=== PATIENT | female | born 1990 | race Caucasian/White ===

== ENCOUNTER 2018-07-04 15:46 | Emergency (ER) | payer OTHER ==
[~2018-07-04] VITALS: Ht 165.1 cm; Wt 71.0 kg
[2018-07-04 16:21] LABS: BASOPHILS # (AUTO) 0.02 x10^3/uL (0-0.1); BASOPHILS % (AUTO) 0 % (0-1); EOSINOPHILS # (AUTO) 0.05 x10^3/uL (0-0.4); EOSINOPHILS % (AUTO) 1 % (1-7); LYMPHOCYTES # (AUTO) 2.16 x10^3/uL (1-3.4); LYMPHOCYTES % (AUTO) 27 % (22-44); MD NO; MEAN CORPUSCULAR HEMOGLOBIN 30.4 pg (27.0-34.8); MEAN CORPUSCULAR HGB CONC 34.6 g/dL (32.4-35.8); MEAN CORPUSCULAR VOLUME 87.9 fL (80-100); MEAN PLATELET VOLUME 8.7 fL (7.4-10.4); MONOCYTES # (AUTO) 0.93 x10^3/uL (0.2-0.8); MONOCYTES % (AUTO) 12 % (2-9); NEUTROPHILS # (AUTO) 4.92 x10^3/uL (1.8-6.8); NEUTROPHILS % (AUTO) 61 % (42-75); PLATELET COUNT 265 x10^3/uL (130-400); RED BLOOD COUNT 4.87 x10^6/uL (3.82-5.3)
[2018-07-04 16:31] LABS: ALANINE AMINOTRANSFERASE 22 U/L (12-78); ALBUMIN 3.7 g/dL (3.4-5.0); ANION GAP 8 mmol/L (5-15); CALCIUM 9.3 mg/dL (8.5-10.1); CHLORIDE 107 mmol/L (98-107); CREATININE 0.78 mg/dL (0.55-1.02)
[2018-07-04 16:36] LABS: ALKALINE PHOSPHATASE 74 U/L (45-117); BILIRUBIN,TOTAL 0.4 mg/dL (0.2-1.0); TOTAL PROTEIN 7.5 g/dL (6.4-8.2); TROPONIN I < 0.015 ng/mL (0.000-0.045)
[2018-07-04 16:38] LABS: MICROSCOPIC AUTO
[2018-07-04 16:41] LABS: CULTURE INDICATED? YES
[2018-07-04] MEDS ORDERED: SODIUM CHLORIDE 0.9% 1,000ML IVBOLUS ONE ×2 (18:00)
[2018-07-04 18:45] VITALS: BP 110/76
== END 2018-07-04 19:24 | disposition home or self-care (01) ==
LOC: ED 17:37
DX: O23.11 Infections of bladder in pregnancy, first trimester (principal); Z3A.14 14 weeks gestation of pregnancy
CPT/HCPCS: 36415; 76801; 80053; 81001; 84484; 84702; 85025; 86901; 87077; 87086; 93005; 96360; 99285; J7030; 87186

== ENCOUNTER 2018-07-08 12:21 | Emergency (ER) | payer OTHER ==
[~2018-07-08] VITALS: Ht 165.1 cm; Wt 70.2 kg
[2018-07-08 13:37] LABS: BASOPHILS # (AUTO) 0.01 x10^3/uL (0-0.1); BASOPHILS % (AUTO) 0 % (0-1); EOSINOPHILS # (AUTO) 0.04 x10^3/uL (0-0.4); EOSINOPHILS % (AUTO) 1 % (1-7); LYMPHOCYTES # (AUTO) 1.36 x10^3/uL (1-3.4); LYMPHOCYTES % (AUTO) 27 % (22-44); MD NO; MEAN CORPUSCULAR HEMOGLOBIN 30.5 pg (27.0-34.8); MEAN CORPUSCULAR HGB CONC 34.5 g/dL (32.4-35.8); MEAN CORPUSCULAR VOLUME 88.4 fL (80-100); MEAN PLATELET VOLUME 8.7 fL (7.4-10.4); MONOCYTES # (AUTO) 0.58 x10^3/uL (0.2-0.8); MONOCYTES % (AUTO) 12 % (2-9); NEUTROPHILS # (AUTO) 3.01 x10^3/uL (1.8-6.8); NEUTROPHILS % (AUTO) 60 % (42-75); PLATELET COUNT 228 x10^3/uL (130-400); RED BLOOD COUNT 4.61 x10^6/uL (3.82-5.3); RED CELL DISTRIBUTION WIDTH 13.4 % (9.6-15.2)
[2018-07-08 14:42] VITALS: BP 132/67
[2018-07-08 14:43] LABS: MICROSCOPIC INDICATED
[2018-07-08 14:54] LABS: CULTURE INDICATED? YES
== END 2018-07-08 15:46 | disposition home or self-care (01) ==
LOC: ED 15:00
DX: O23.11 Infections of bladder in pregnancy, first trimester (principal); Z3A.01 Less than 8 weeks gestation of pregnancy
CPT/HCPCS: 36415; 76801; 81001; 84702; 85025; 87077; 87086; 87186; 99285

== ENCOUNTER 2019-04-27 14:54 | Emergency (ER) | payer OTHER ==
[~2019-04-27] VITALS: Ht 165.1 cm; Wt 84.4 kg
[2019-04-27 14:57] VITALS: BP 121/84
--- NOTE | 2019-04-27 15:25 | NUR ---
ua ordered; rn to bedside; educated on clean catch methods; patient repeated instructions and verbalized understanding.
--- NOTE | 2019-04-27 15:35 | NUR ---
u/s at bedside; labs complete
[2019-04-27 15:42] LABS: BASOPHILS # (AUTO) 0.06 x10^3/uL (0-0.1); BASOPHILS % (AUTO) 1 % (0-1); EOSINOPHILS # (AUTO) 0.07 x10^3/uL (0-0.4); EOSINOPHILS % (AUTO) 1 % (1-7); LYMPHOCYTES # (AUTO) 1.65 x10^3/uL (1-3.4); LYMPHOCYTES % (AUTO) 20 % (22-44); MD NO; MEAN CORPUSCULAR HEMOGLOBIN 29.2 pg (27.0-34.8); MEAN CORPUSCULAR HGB CONC 33.2 g/dL (32.4-35.8); MEAN CORPUSCULAR VOLUME 87.9 fL (80-100); MEAN PLATELET VOLUME 8.9 fL (7.4-10.4); MONOCYTES # (AUTO) 0.79 x10^3/uL (0.2-0.8); MONOCYTES % (AUTO) 10 % (2-9); NEUTROPHILS # (AUTO) 5.61 x10^3/uL (1.8-6.8); NEUTROPHILS % (AUTO) 69 % (42-75); PLATELET COUNT 204 x10^3/uL (130-400); RED BLOOD COUNT 4.09 x10^6/uL (3.82-5.3); RED CELL DISTRIBUTION WIDTH 14.5 % (9.6-15.2)
[2019-04-27 15:50] LABS: ALANINE AMINOTRANSFERASE 16 U/L (12-78); ALBUMIN 2.8 g/dL (3.4-5.0); ANION GAP 7 mmol/L (5-15); CALCIUM 9.1 mg/dL (8.5-10.1); CHLORIDE 112 mmol/L (98-107); CREATININE 0.53 mg/dL (0.55-1.02)
[2019-04-27 15:52] LABS: ALKALINE PHOSPHATASE 73 U/L (45-117); BILIRUBIN,TOTAL 0.2 mg/dL (0.2-1.0); TOTAL PROTEIN 6.5 g/dL (6.4-8.2)
--- NOTE | 2019-04-27 16:26 | NUR ---
u/a sent; provider updated
[2019-04-27 16:40] LABS: MICROSCOPIC AUTO
[2019-04-27 17:04] LABS: CULTURE INDICATED? YES
[2019-05-03] MEDS ORDERED: PREN1TAB60 PO (06:24)
[2019-06-07] MEDS ORDERED: PREN1TAB10 PO (16:54)
== END 2019-04-27 17:45 | disposition home or self-care (01) ==
LOC: ED 17:37
DX: O23.12 Infections of bladder in pregnancy, second trimester (principal); Z87.891 Personal history of nicotine dependence; Z3A.20 20 weeks gestation of pregnancy
CPT/HCPCS: 36415; 80053; 81001; 84550; 85025; 87077; 87086; 87186; 93970; 99284

== ENCOUNTER 2019-05-03 05:32 | Outpatient (CLI) | payer OTHER ==
[~2019-05-03] VITALS: Ht 165.1 cm; Wt 80.0 kg
[2019-05-03 05:55] VITALS: BP 111/65
== END 2019-05-03 06:40 | disposition home or self-care (01) ==
LOC: LDOP 05:32
PROVIDERS: ATTEND Obstetrics & Gynecology
DX: O46.92 Antepartum hemorrhage, unspecified, second trimester (principal); O26.892 Other specified pregnancy related conditions, second trimester; R10.9 Unspecified abdominal pain; Z3A.20 20 weeks gestation of pregnancy
CPT/HCPCS: 81003; 87086; 99211; G0463

== ENCOUNTER 2019-07-17 20:29 | Outpatient (CLI) | payer OTHER ==
[~2019-07-17 20:29] MED LIST: PREN1TAB10 PO; PREN1TAB60 PO
[2019-07-17 20:58] LABS: MICROSCOPIC AUTO
[2019-07-17 21:30] VITALS: BP 116/70
== END 2019-07-17 22:30 | disposition home or self-care (01) ==
LOC: LDOP 20:29
PROVIDERS: ATTEND Obstetrics & Gynecology
DX: O36.8130 Decreased fetal movements, third trimester, not applicable or unspecified (principal); O26.893 Other specified pregnancy related conditions, third trimester; R10.9 Unspecified abdominal pain; O16.3 Unspecified maternal hypertension, third trimester; Z3A.31 31 weeks gestation of pregnancy
CPT/HCPCS: 59025; 81001; 87077; 87086; 87186; 99211; G0463

== ENCOUNTER 2019-07-27 12:06 | Outpatient (CLI) | payer OTHER ==
[2019-07-27 13:08] LABS: FERNING TEST FERNING NOT PRESENT (NEGATIVE)
== END 2019-07-27 14:00 | disposition home or self-care (01) ==
LOC: LDOP 12:06
PROVIDERS: ATTEND Obstetrics & Gynecology
DX: O42.90 Premature rupture of membranes, unspecified as to length of time between rupture and onset of labor, unspecified weeks of gestation (principal); Z3A.32 32 weeks gestation of pregnancy
CPT/HCPCS: 59025; 76815; 84112; 89060; 99211; G0463; Q0114

== ENCOUNTER 2019-08-15 17:51 | Outpatient (CLI) | payer OTHER ==
[~2019-08-15] VITALS: Ht 165.1 cm; Wt 90.9 kg
[2019-08-15 18:19] VITALS: BP 112/65
[2019-08-15 18:38] LABS: MICROSCOPIC INDICATED
[2019-08-15] MEDS ORDERED: MORPHINE SULFATE 4 MG/ML, 1ML ONE (19:22)
[2019-08-15] MEDS ORDERED: MORPHINE SULFATE 4 MG/ML, 1ML IVPush ONE (19:30)
[2019-08-15] MEDS ORDERED: CEFTRIAXONE PMX 2GM/50ML 50 ML IV ONE (20:00)
[2019-08-27] MEDS ORDERED: IBUP-1222 PO (11:15)
[2019-08-27] MEDS ORDERED: CEFU250T66 PO (11:20)
[2019-08-27] MEDS ORDERED: OXYC-302 PO (11:22)
== END 2019-08-15 21:10 | disposition home or self-care (01) ==
LOC: LDOP 17:51 → UNDOADMOB 19:44 → LDIP 19:44 → LDOP 21:10 → UNDODISOB 21:10
PROVIDERS: ATTEND Obstetrics & Gynecology
DX: O26.893 Other specified pregnancy related conditions, third trimester (principal); Z3A.37 37 weeks gestation of pregnancy
CPT/HCPCS: 76770; 81001; 87077; 87086; 87186; J0696; J2270; 59025; 99211; G0378; G0463

== ENCOUNTER 2020-02-25 21:26 | Inpatient (IN) | payer OTHER ==
[~2020-02-25] VITALS: Ht 162.6 cm; Wt 80.5 kg
[~2020-02-25 21:26] MED LIST changes: +ALPR0.5T6 PO; +BIRTH CONTROL PILL; +CEFU250T66 PO; +ENOX80SY4 SQ; +GUAI200T37 PO; +IBUP-1222 PO; +OXYC-302 PO; +PAXIL; +WARF7.5T PO-COUM
[2020-02-25] MEDS ORDERED: ONDANSETRON 2MG/ML, 2ML ONE (22:54)
[2020-02-25] MEDS ORDERED: MORPHINE SULFATE 4 MG/ML, 1ML ONE (22:54)
[2020-02-25 22:56] LABS: ALANINE AMINOTRANSFERASE 16 U/L (12-78); ALBUMIN 3.5 g/dL (3.4-5.0); ANION GAP 8 mmol/L (5-15); CALCIUM 8.9 mg/dL (8.5-10.1); CHLORIDE 108 mmol/L (98-107); CREATININE 1.02 mg/dL (0.55-1.02)
[2020-02-25 23:00] LABS: ALKALINE PHOSPHATASE 84 U/L (45-117); BILIRUBIN,TOTAL 0.4 mg/dL (0.2-1.0); TOTAL PROTEIN 7.3 g/dL (6.4-8.2); TROPONIN I < 0.015 ng/mL (0.000-0.045)
[2020-02-25] MEDS ORDERED: MORPHINE SULFATE 4 MG/ML, 1ML IVPush PRN (23:00)
[2020-02-25] MEDS ORDERED: ONDANSETRON 2MG/ML, 2ML IVPush ONE (23:00)
[2020-02-25 23:01] LABS: BASOPHILS # (AUTO) 0.07 x10^3/uL (0-0.1); BASOPHILS % (AUTO) 1 % (0-1); EOSINOPHILS # (AUTO) 0.05 x10^3/uL (0-0.4); EOSINOPHILS % (AUTO) 1 % (1-7); LYMPHOCYTES # (AUTO) 1.24 x10^3/uL (1-3.4); LYMPHOCYTES % (AUTO) 15 % (22-44); MD NO; MEAN CORPUSCULAR HEMOGLOBIN 26.5 pg (27.0-34.8); MEAN CORPUSCULAR HGB CONC 33.4 g/dL (32.4-35.8); MEAN CORPUSCULAR VOLUME 79.3 fL (80-100); MEAN PLATELET VOLUME 9.6 fL (7.4-10.4); MONOCYTES # (AUTO) 0.85 x10^3/uL (0.2-0.8); MONOCYTES % (AUTO) 10 % (2-9); NEUTROPHILS # (AUTO) 6.31 x10^3/uL (1.8-6.8); NEUTROPHILS % (AUTO) 74 % (42-75); PLATELET COUNT 214 x10^3/uL (130-400); RED BLOOD COUNT 4.96 x10^6/uL (3.82-5.3); RED CELL DISTRIBUTION WIDTH 15.6 % (9.6-15.2)
--- NOTE | 2020-02-25 23:21 | NUR ---
PT RETURNED FROM CT, DENIES ANY NEEDS OR CONCERNS. CALL LIGHT IN REACH.
[2020-02-25] MEDS ORDERED: HEPARIN 5,000 UNITS/ML, 1ML IV ONE (23:45)
[2020-02-25] MEDS ORDERED: HEPARIN 25,000 UNITS/250ML PMX 250 ML IV PRN (23:45)
[2020-02-25] MEDS ORDERED: HEPARIN 5,000 UNITS/ML, 1ML IV PRN (23:45)
[2020-02-26] MEDS ORDERED: BISACODYL 10 MG SUPP PR PRN (00:30)
[2020-02-26] MEDS ORDERED: hydrALAzine 20 MG/ML, 1ML IVPush PRN (00:30)
[2020-02-26] MEDS ORDERED: PROMETHAZINE 25 MG/ML, 1ML IM PRN (00:30)
[2020-02-26] MEDS ORDERED: POLYETHYLENE GLYCOL 17 GM PACKET PO PRN (00:30)
[2020-02-26] MEDS ORDERED: ACETAMINOPHEN 325 MG TABLET PO PRN (00:30)
[2020-02-26] MEDS ORDERED: DOCUSATE 100 MG CAPSULE PO PRN (00:30)
[2020-02-26 00:38] LABS: INTERNATIONAL NORMALIZED RATIO 0.99 (0.93-1.1); PROTHROMBIN TIME 10.5 Seconds (9.6-11.5)
--- NOTE | 2020-02-26 00:48 | NUR ---
REPORT TO ROM JACOBS.
[2020-02-26 00:59] LABS: FREE T4 (FREE THYROXINE) 1.13 ng/dL (0.76-1.46)
[2020-02-26 01:30] VITALS: BP 95/67
[2020-02-26] MEDS ORDERED: APIX5TAB PO (01:35)
[2020-02-26] MEDS ORDERED: eloquis (01:35)
[2020-02-26] MEDS: morphine SULFATE 10 MG/ML, 1ML IVPush PRN ×3 (02:13→23:02)
[2020-02-26 06:52] VITALS: BP 107/69
[2020-02-26] MEDS: ONDANSETRON 2MG/ML, 2ML IVPush PRN ×2 (08:07→18:09)
[2020-02-26] MEDS ORDERED: OXYcodone/APAP 5/325MG TABLET PO PRN ×2 (09:00)
[2020-02-26] MEDS ORDERED: HEPARIN 25,000 UNITS/250ML PMX 250 ML IV PRN (09:00)
[2020-02-26] MEDS ORDERED: LIDODERM REMOVE PATCH NOTE XX PRN (09:00)
[2020-02-26] MEDS ORDERED: HEPARIN 5,000 UNITS/ML, 1ML IV PRN (09:00)
[2020-02-26] MEDS: APIXABAN 5 MG TABLET PO SCH ×2 (09:35→21:05)
[2020-02-26] MEDS: LIDODERM 5% PATCH TD PRN (09:36)
[2020-02-26 12:25] VITALS: BP 99/67
[2020-02-26] MEDS: OXYcodone/APAP 5/325MG TABLET PO PRN (18:04)
[2020-02-26 19:57] VITALS: BP 108/69
[2020-02-26] MEDS: NORETHINDRONE 0.35 MG HOMEMEDPO SCH (22:00)
[2020-02-27 01:18] VITALS: BP 100/68
[2020-02-27] MEDS: ONDANSETRON 2MG/ML, 2ML IVPush PRN (03:01)
[2020-02-27] MEDS: OXYcodone/APAP 5/325MG TABLET PO PRN ×5 (03:01→23:49)
[2020-02-27 05:53] LABS: BASOPHILS # (AUTO) 0.03 x10^3/uL (0-0.1); BASOPHILS % (AUTO) 0 % (0-1); EOSINOPHILS # (AUTO) 0.17 x10^3/uL (0-0.4); EOSINOPHILS % (AUTO) 2 % (1-7); LYMPHOCYTES # (AUTO) 1.11 x10^3/uL (1-3.4); LYMPHOCYTES % (AUTO) 13 % (22-44); MD NO; MEAN CORPUSCULAR HEMOGLOBIN 26.5 pg (27.0-34.8); MEAN CORPUSCULAR HGB CONC 32.9 g/dL (32.4-35.8); MEAN CORPUSCULAR VOLUME 80.7 fL (80-100); MEAN PLATELET VOLUME 9.7 fL (7.4-10.4); MONOCYTES # (AUTO) 0.74 x10^3/uL (0.2-0.8); MONOCYTES % (AUTO) 9 % (2-9); NEUTROPHILS # (AUTO) 6.31 x10^3/uL (1.8-6.8); NEUTROPHILS % (AUTO) 75 % (42-75); PLATELET COUNT 182 x10^3/uL (130-400); RED BLOOD COUNT 4.65 x10^6/uL (3.82-5.3); RED CELL DISTRIBUTION WIDTH 15.9 % (9.6-15.2)
[2020-02-27 06:01] LABS: ANION GAP 7 mmol/L (5-15); CALCIUM 8.4 mg/dL (8.5-10.1); CHLORIDE 109 mmol/L (98-107)
[2020-02-27 06:06] LABS: ALANINE AMINOTRANSFERASE 15 U/L (12-78); ALKALINE PHOSPHATASE 74 U/L (45-117); BILIRUBIN,TOTAL 0.6 mg/dL (0.2-1.0); CHOL/HDL RATIO 3.2; CHOLESTEROL, TOTAL 147 mg/dL (140-239); CREATININE 0.79 mg/dL (0.55-1.02); HDL CHOL % 31 % (28-40); HDL CHOLESTEROL (DIRECT) 46 mg/dL (40-60); LDL CHOLESTEROL,CALCULATED 69 mg/dL (54-169); LDL/HDL RATIO 1.5 (0.5-3.0); TOTAL PROTEIN 7.1 g/dL (6.4-8.2); TRIGLYCERIDES 158 mg/dL (50-200); VLDL CHOLESTEROL 32 mg/dL (0-25)
[2020-02-27 06:45] VITALS: BP 100/66
[2020-02-27] MEDS: ONDANSETRON ODT 4 MG PO PRN ×4 (08:51→23:49)
[2020-02-27] MEDS: APIXABAN 5 MG TABLET PO SCH ×2 (08:51→21:02)
[2020-02-27] MEDS: LIDODERM 5% PATCH TD PRN (08:55)
[2020-02-27 12:15] VITALS: BP 99/68
[2020-02-27] MEDS ORDERED: PARO10TA3 PO (17:10)
[2020-02-27] MEDS ORDERED: NORE0.3513 PO (17:10)
[2020-02-27 17:46] LABS: HCT (SEDRATE) 37.6 % (34.6-47.8)
[2020-02-27] MEDS: PIPERACILLIN/TAZO/PMX 3.375GM 50 ML IV SCH ×2 (18:01→23:41)
[2020-02-27 20:05] VITALS: BP 109/53
[2020-02-27] MEDS ORDERED: IBUPROFEN 200 MG TABLET ONE (20:18)
[2020-02-27] MEDS ORDERED: PAROXETINE 10 MG TABLET PO SCH (21:00)
[2020-02-27] MEDS: IBUPROFEN 600 MG TABLET PO SCH (21:02)
[2020-02-27] MEDS: NORETHINDRONE 0.35 MG HOMEMEDPO SCH (21:03)
[2020-02-28 01:35] VITALS: BP 100/61
[2020-02-28 05:14] LABS: BASOPHILS # (AUTO) 0.03 x10^3/uL (0-0.1); BASOPHILS % (AUTO) 1 % (0-1); EOSINOPHILS # (AUTO) 0.23 x10^3/uL (0-0.4); EOSINOPHILS % (AUTO) 3 % (1-7); LYMPHOCYTES # (AUTO) 1.49 x10^3/uL (1-3.4); LYMPHOCYTES % (AUTO) 21 % (22-44); MD NO; MEAN CORPUSCULAR HEMOGLOBIN 26.5 pg (27.0-34.8); MEAN CORPUSCULAR HGB CONC 32.8 g/dL (32.4-35.8); MEAN CORPUSCULAR VOLUME 80.7 fL (80-100); MEAN PLATELET VOLUME 9.4 fL (7.4-10.4); MONOCYTES # (AUTO) 0.93 x10^3/uL (0.2-0.8); MONOCYTES % (AUTO) 13 % (2-9); NEUTROPHILS % (AUTO) 63 % (42-75); PLATELET COUNT 175 x10^3/uL (130-400); RED BLOOD COUNT 4.37 x10^6/uL (3.82-5.3); RED CELL DISTRIBUTION WIDTH 15.7 % (9.6-15.2)
[2020-02-28 05:17] LABS: ANION GAP 5 mmol/L (5-15); CALCIUM 8.3 mg/dL (8.5-10.1); CHLORIDE 106 mmol/L (98-107)
[2020-02-28] MEDS: PIPERACILLIN/TAZO/PMX 3.375GM 50 ML IV SCH ×2 (05:47→11:46)
[2020-02-28] MEDS: ONDANSETRON ODT 4 MG PO PRN (05:53)
[2020-02-28] MEDS: OXYcodone/APAP 5/325MG TABLET PO PRN ×2 (05:54→11:51)
[2020-02-28] MEDS ORDERED: PANTOPRAZOLE 40MG TABLET PO SCH (06:00)
[2020-02-28 07:39] VITALS: BP 100/67
[2020-02-28] MEDS ORDERED: IBUPROFEN 200 MG TABLET ONE ×2 (08:07→16:22)
[2020-02-28] MEDS: APIXABAN 5 MG TABLET PO SCH (08:10)
[2020-02-28] MEDS: IBUPROFEN 600 MG TABLET PO SCH ×2 (08:11→16:28)
[2020-02-28] MEDS: ONDANSETRON 2MG/ML, 2ML IVPush PRN (11:51)
[2020-02-28 13:52] VITALS: BP 125/78
[2020-02-28] MEDS ORDERED: IBUP-1222 PO (15:34)
[2020-02-28] MEDS ORDERED: AMOX1TAB64 PO (15:34)
[2020-02-28] MEDS ORDERED: OXYcodone/APAP 5/325MG PO (15:34)
[2020-02-28] MEDS ORDERED: PANT40TA3 PO (15:36)
== END 2020-02-28 17:47 | disposition home or self-care (01) | DRG 175 ==
LOC: ED 22:50 → EDIP 02-26 00:07 → 5SO 02-26 01:24
PROVIDERS: ADMIT Internal Medicine; ATTEND Internal Medicine
DX: I26.99 Other pulmonary embolism without acute cor pulmonale (principal); J18.9 Pneumonia, unspecified organism; J90 Pleural effusion, not elsewhere classified; D68.59 Other primary thrombophilia; F32.9 Major depressive disorder, single episode, unspecified; F41.9 Anxiety disorder, unspecified; Z79.01 Long term (current) use of anticoagulants; Z87.442 Personal history of urinary calculi; Z87.891 Personal history of nicotine dependence
CPT/HCPCS: 36415; 71275; 80048; 80053; 80061; 82728; 83036; 83540; 83550; 83735; 83880; 84145; 84439; 84443; 84466; 84484; 84703; 85025; 85520; 85610; 85651; 86140; 87040; 93005; 93308; 93321; 93325; 93970; 96374; G0378; J2405; J2543; J2550; Q0162; J2270

== ENCOUNTER 2020-07-30 18:13 | Emergency (ER) | payer OTHER ==
[~2020-07-30] VITALS: Ht 165.1 cm; Wt 77.0 kg
[~2020-07-30 18:13] MED LIST changes: +AMOX1TAB64 PO; +APIX5TAB PO; +NORE0.3513 PO; +OXYcodone/APAP 5/325MG PO; +PANT40TA3 PO; +PARO10TA3 PO; +eloquis
[2020-07-30 19:00] LABS: BASOPHILS % (AUTO) 1 % (0-1); EOSINOPHILS % (AUTO) 1 % (1-7); LYMPHOCYTES % (AUTO) 31 % (22-44); MEAN CORPUSCULAR HEMOGLOBIN 26.1 pg (27.0-34.8); MEAN CORPUSCULAR HGB CONC 32.8 g/dL (32.4-35.8); MEAN PLATELET VOLUME 8.9 fL (7.4-10.4); MONOCYTES % (AUTO) 10 % (2-9); NEUTROPHILS % (AUTO) 57 % (42-75); PLATELET COUNT 314 x10^3/uL (130-400); RED BLOOD COUNT 5.18 x10^6/uL (3.82-5.3); RED CELL DISTRIBUTION WIDTH 15.3 % (9.6-15.2)
[2020-07-30 19:02] LABS: MD NO
[2020-07-30 19:11] LABS: ALANINE AMINOTRANSFERASE 18 U/L (12-78); ALBUMIN 3.8 g/dL (3.4-5.0); ANION GAP 5 mmol/L (5-15); CALCIUM 8.7 mg/dL (8.5-10.1); CHLORIDE 107 mmol/L (98-107); CREATININE 0.92 mg/dL (0.55-1.02)
[2020-07-30 19:15] LABS: ALKALINE PHOSPHATASE 100 U/L (45-117); BILIRUBIN,TOTAL 0.5 mg/dL (0.2-1.0); TOTAL PROTEIN 7.9 g/dL (6.4-8.2)
--- NOTE | 2020-07-30 20:19 | NUR ---
pt called to room from lobby
[2020-07-30 20:53] LABS: MICROSCOPIC INDICATED
[2020-07-30 21:02] VITALS: BP 96/55
--- NOTE | 2020-07-30 21:16 | NUR ---
LATE ENTRY SUMMARY NOTE: THIS PT WAS SENT FROM PRIMARY/ URGENT CARE BECAUSE SHE HAD "SIGNIFICANT" BLOOD IN HER URINE. NO COLIN BLOOD SEEN IN URINE HER. PT STATES SHE WAS DIAGNOSED WITH A KIDNEY STONE AND THAT SHE WAS SUPPOSED TO HAVE LITHOTRIPSY BUT HAD TO BE ADMITTED TO THE HOSPITAL FOR A PE SO WAS UNABLE TO MAKE HER APPOINTMENT.
[2020-07-30] MEDS ORDERED: HYDROcodone/APAP 5/325 TABLET ONE (22:21)
[2020-07-30] MEDS ORDERED: HYDROcodone/APAP 5/325 TABLET PO ONE (22:30)
== END 2020-07-30 22:30 | disposition home or self-care (01) ==
LOC: ED 21:11
DX: N30.01 Acute cystitis with hematuria (principal); R07.9 Chest pain, unspecified
CPT/HCPCS: 36415; 71045; 80053; 81001; 84703; 85025; 87077; 87086; 87186; 99284

== ENCOUNTER 2020-09-18 05:34 | Day surgery (SDC) | payer OTHER ==
[~2020-09-18] VITALS: Ht 165.1 cm; Wt 75.0 kg
[~2020-09-18 05:34] MED LIST changes: +BIRTH CONTROL PO
[2020-09-18] MEDS ORDERED: ACET325T14 PO (06:37)
[2020-09-18 06:43] LABS: HCG UR SG 1.021 (1.003-1.030)
[2020-09-18 06:44] VITALS: BP 117/84
[2020-09-18] MEDS ORDERED: CHLORHEXIDINE 15 ML UDC MM ONE (07:00)
[2020-09-18] MEDS ORDERED: LACTATED RINGERS 1,000 ML IV SCH (07:00)
[2020-09-18] MEDS ORDERED: FENTANYL PF 250 MCG/5ML ONE (07:08)
[2020-09-18] MEDS ORDERED: MIDAZOLAM 1 MG/ML, 2ML ONE (07:08)
[2020-09-18] MEDS ORDERED: PROPOFOL 50 ML ONE ×2 (07:19→07:44)
[2020-09-18] MEDS ORDERED: KETOROLAC 30 MG/1 ML ONE (07:25)
[2020-09-18] MEDS ORDERED: CEFAZOLIN 1,000 MG ONE (07:25)
[2020-09-18] MEDS ORDERED: METOCLOPRAMIDE 5 MG/ML, 2ML ONE (07:25)
[2020-09-18] MEDS ORDERED: ONDANSETRON 2MG/ML, 2ML ONE (07:25)
[2020-09-18] MEDS ORDERED: DEXAMETHASONE 4 MG/ML, 1ML ONE (07:25)
[2020-09-18 08:04] LABS: INTERNATIONAL NORMALIZED RATIO 1.07 (0.93-1.1); PROTHROMBIN TIME 11.3 Seconds (9.6-11.5)
[2020-09-18] MEDS ORDERED: OMNIPAQUE 350 MG/ML, 50 ML BOTTLE IV ONE (08:23)
[2020-09-18] MEDS ORDERED: OXYcodone 5 MG/5 ML ORAL.SOL UDC PO PRN (08:30)
[2020-09-18] MEDS ORDERED: hydrALAzine 20 MG/ML, 1ML IV PRN (08:30)
[2020-09-18] MEDS ORDERED: EPHEDRINE 50 MG/ML, 1ML IVPush PRN (08:30)
[2020-09-18] MEDS ORDERED: PROMETHAZINE 25 MG/ML, 1ML IVPush PRN (08:30)
[2020-09-18] MEDS ORDERED: LORazepam 2 MG/ML, 1ML IVPush PRN (08:30)
[2020-09-18] MEDS ORDERED: HYDROmorphone 1 MG/ML, 1ML INJ IVPush PRN (08:30)
[2020-09-18] MEDS ORDERED: FENTANYL PF 100 MCG/2ML IV PRN (08:30)
[2020-09-18] MEDS ORDERED: MEPERIDINE/PF 25MG/0.5ML IVPush PRN (08:30)
[2020-09-18] MEDS ORDERED: METHOCARBAMOL 1,000 MG in DEXTROSE 5% 100 ML IV PRN (08:30)
[2020-09-18] MEDS ORDERED: ONDANSETRON 2MG/ML, 2ML IVPush PRN (08:30)
[2020-09-18] MEDS ORDERED: LABETALOL 5MG/ML, 20ML IV PRN (08:30)
[2020-09-18] MEDS ORDERED: ACETAMINOPHEN 325 MG TABLET PO PRN (08:30)
[2020-09-18] MEDS ORDERED: FENTANYL PF 100 MCG/2ML ONE (08:59)
[2020-09-18] MEDS ORDERED: PHENAZOPYRIDINE 200 MG TABLET ONE (09:11)
[2020-09-18] MEDS ORDERED: ACETAMINOPHEN 650 MG/20.3 ML UDC ONE (09:24)
[2020-09-18] MEDS ORDERED: OXYcodone 5 MG/5 ML ORAL.SOL UDC ONE (09:24)
[2020-09-18] MEDS ORDERED: PHENAZOPYRIDINE 200 MG TABLET PO ONE (09:30)
[2020-09-18] MEDS ORDERED: ONDANSETRON ODT 4 MG ONE (09:33)
[2020-09-18] MEDS ORDERED: OMNIPAQUE 350 MG/ML, 50 ML BOTTLE ONE (10:15)
== END 2020-09-18 11:10 | disposition home or self-care (01) ==
LOC: OUT 05:34
PROVIDERS: ATTEND Urology
DX: N20.1 Calculus of ureter (principal); F17.290 Nicotine dependence, other tobacco product, uncomplicated; Z20.828 Contact with and (suspected) exposure to other viral communicable diseases; Z79.01 Long term (current) use of anticoagulants; Z79.1 Long term (current) use of non-steroidal anti-inflammatories (NSAID); Z79.891 Long term (current) use of opiate analgesic; Z79.899 Other long term (current) drug therapy; Z86.711 Personal history of pulmonary embolism; Z87.442 Personal history of urinary calculi
CPT/HCPCS: 36415; 52356; 74420; 81025; 85610; 88300; C1758; C1769; C2617; J0690; J1100; J1885; J2250; J2405; J2704; J2765; J3010; J7120; Q9967; U0003